=== PATIENT | female | born 1970 | race Caucasian/White ===

== ENCOUNTER 2017-08-04 01:43 | Emergency (ER) | payer SELFPAY ==
[~2017-08-04] VITALS: Ht 160 cm; Wt 58.9 kg
[~2017-08-04 01:43] MED LIST: ALPR1 PO; CYCL-36 PO; TRAM50TA PO
[2017-08-04 01:46] VITALS: BP 185/110; PULSE 89; RESP 18; TEMP 97.6; O2SAT 98
[2017-08-04 02:32] VITALS: BP 166/79
[2017-08-04] MEDS ORDERED: TRAM50 PO (02:35)
[2017-08-04] MEDS ORDERED: CIPR-9 PO (02:35)
--- NOTE | 2017-08-04 02:35 | PD ---
HPI Chief Complaint: ENT Complaint Time Seen by Provider: 02:11 Travel History International Travel<30 days: No Contact w/Intl Traveler<30days: No Traveled to known affect area: No History of Present Illness HPI Patient comes in complaining of a few hours worth of right ear pain. At first she thought that it was related to her dental work that she had done but that was approximately 4-5 days ago and up to this point she had not had any type of pain referred to her ear before. Now the patient returns stating that is painful to move or touch her right ear. There is no alleviating or aggravating factors. Patient denies any associated factors such as fever, rash, headache, back pain, neck pain, chest pain, abdominal pain, flank pain. Patient also denies any nausea vomiting or diarrhea. She also denies any associated runny nose/cough/sore throat at this present time. Patient states that she has allergy to aspirin, that causes hives and swelling. Past medical history significant for tubal ligation, anxiety, alcohol and tobacco use. PFSH Past Medical History Anxiety: Yes Diminished Hearing: No ?: Not LMP: 8 months ago Tubal Ligation: Yes Social History Alcohol Use: Yes (SOCIAL) Tobacco Use: Yes (1 PPD) Substance Use: No Allergies-Medications (Allergen,Severity, Reaction): Coded Allergies: aspirin (Unverified Allergy, Severe, HEART PALPITATIONS, 08/04/17) Reported Meds & Prescriptions Reported Meds & Active Scripts Active Cipro (Ciprofloxacin HCl) 500 Mg Tab 500 Mg PO BID 10 Days Ultram (Tramadol HCl) 50 Mg Tab 50 Mg PO Q6H PRN Reported Xanax 1 Mg Tab (Alprazolam) 1 Mg Tab 1 Mg PO HS PRN Review of Systems General / Constitutional: No: Fever Eyes: No: Visual changes HENT: Positive: Earache Cardiovascular: No: Chest Pain or Discomfort Respiratory: No: Shortness of Breath Gastrointestinal: No: Abdominal Pain Genitourinary: No: Dysuria Musculoskeletal: No: Pain Skin: No Rash Neurologic: No: Weakness Psychiatric: No: Depression Endocrine: No: Polydipsia Hematologic/Lymphatic: No: Easy Bruising Physical Exam Narrative GENERAL: SKIN: Warm and dry. HEAD: Atraumatic. Normocephalic. EYES: Pupils equal and round. No scleral icterus. No injection or drainage. ENT: No nasal bleeding or discharge. Mucous membranes pink and moist. External auditory canal on the right side is erythematous, tympanic membrane is also edematous and erythematous and dull to light loss of light reflex NECK: Trachea midline. No JVD. CARDIOVASCULAR: Regular rate and rhythm. RESPIRATORY: No accessory muscle use. Clear to auscultation. Breath sounds equal bilaterally. GASTROINTESTINAL: Abdomen soft, non-tender, nondistended. MUSCULOSKELETAL: Extremities without clubbing, cyanosis, or edema. No obvious deformities. NEUROLOGICAL: Awake and alert. No obvious cranial nerve deficits. Motor grossly within normal limits. Five out of 5 muscle strength in the arms and legs. Normal speech. PSYCHIATRIC: Appropriate mood and affect; insight and judgment normal. Data Data Last Documented VS Orders Orders Tramadol (Ultram) (08/04/17 02:45) Ciprofloxacin (Cipro) (08/04/17 02:45) Ed Discharge Order (08/04/17 02:36) [facility] Medical Decision Making Medical Screen Exam Complete: Yes Emergency Medical Condition: Yes Medical Record Reviewed: Yes Differential Diagnosis Pharyngitis versus otitis externa versus otitis media Narrative Course Clinically the patient has otitis externa and otitis media Diagnosis Primary Impression: Right otitis externa with otitis media Patient Instructions: Ear Infection (DC), General Instructions, Otitis Externa (ED) Scripts Ciprofloxacin (Cipro) 500 Mg Tab 500 MG PO BID for Infection for 10 Days, #20 TAB 0 Refills Prov: Cachorro Wills MD 08/04/17 Tramadol (Ultram) 50 Mg Tab 50 MG PO Q6H Y for PAIN, #14 TAB 0 Refills Prov: Cachorro Wills MD 08/04/17 Disposition: 01 DISCHARGE HOME Condition: Stable Cachorro Wills MD August 04, 2017 02:35
[2017-08-04] MEDS ORDERED: traMADol HCL 50 MG TAB PO ONE (02:45)
[2017-08-04] MEDS ORDERED: CIPROFLOXACIN 500 MG TAB PO ONE (02:45)
[2017-08-04 02:59] VITALS: BP 168/84
== END 2017-08-04 03:01 | disposition home or self-care (01) ==
LOC: PHED 01:43
DX: H60.91 Unspecified otitis externa, right ear (principal); H66.91 Otitis media, unspecified, right ear; F41.9 Anxiety disorder, unspecified; F17.200 Nicotine dependence, unspecified, uncomplicated
CPT/HCPCS: 99283